=== PATIENT | male | born 1945 | race Caucasian/White ===

== ENCOUNTER 2018-11-22 12:38 | Inpatient (IN) | payer MEDICARE, BC ==
[2018-11-22] MEDS ORDERED: ACETAMINOPHEN 650 MG SUPP PR (12:48)
[2018-11-22] MEDS: SODIUM CHLORIDE 0.9% 1L BAG IV* (13:02)
[2018-11-22 13:05] LABS: ADD MAN DIFF? NO
[2018-11-22] MEDS ORDERED: ACETAMINOPHEN 500 MG TAB (13:05)
[2018-11-22 13:09] LABS: BASOPHIL # 0.1 10^3/ul (0.0-0.1); BASOPHILS % 0.4 % (0.0-2.0); EOSINOPHILS % 0.2 % (0.0-7.0); HEMATOCRIT 35.8 % (42.0-52.0); HEMOGLOBIN 12.1 g/dl (14.0-18.0); LYMPHOCYTES % 7.8 % (15.0-51.0); MEAN CORPUSCULAR HGB CONC 33.8 g/dl (32.0-37.0); MEAN CORPUSCULAR VOLUME 85.9 fl (82.0-101.0); MEAN PLATELET VOLUME 9.1 fl (7.4-10.4); MONOCYTE # 1.3 10^3/ul (0.3-0.9); MONOCYTES % 9.5 % (0.0-11.0); NEUTROPHIL # 10.6 10^3/ul (1.6-7.5); NEUTROPHILS % 80.1 % (39.0-77.0); PLATELET COUNT 351 10^3/UL (140-415); RED BLOOD COUNT 4.17 10^6/ul (4.70-6.10); RED CELL DISTRIBUTION WIDTH 13.5 % (11.5-14.5)
[2018-11-22 13:09] LABS: WHITE BLOOD COUNT 13.2 10^3/ul (4.8-10.8)
[2018-11-22] MEDS: IBUPROFEN 800 MG TAB PO (13:12)
[2018-11-22] MEDS: ACETAMINOPHEN 500 MG TAB PO (13:12)
[2018-11-22] MEDS: CEFEPIME 2GM/50 ML (PMX) 50 ML IVPB (13:13)
[2018-11-22 13:28] LABS: INR 1.19; PROTIME 15.2 Sec (11.9-14.9); PT RATIO 1.2
[2018-11-22 13:29] LABS: PARTIAL THROMBOPLASTIN TIME 35.9 Sec (23.0-35.0)
[2018-11-22 13:34] LABS: ALANINE AMINOTRANSFERASE 38 IU/L (13-69); ALBUMIN 3.7 g/dl (3.3-4.9); ALKALINE PHOSPHATASE 111 IU/L (42-121); AMYLASE 51 U/L (11-123); ANION GAP 10 (5-13); ASPARTATE AMINO TRANSFERASE 45 IU/L (15-46); BILIRUBIN,INDIRECT 0.6 mg/dl (0-1.1); BILIRUBIN,TOTAL 0.6 mg/dl (0.2-1.3); BLOOD UREA NITROGEN 15 mg/dl (7-20); CALCIUM 8.2 mg/dl (8.4-10.2); CARBON DIOXIDE 26 mmol/L (21-31); CHLORIDE 99 mmol/L (97-110); CREATININE 0.77 mg/dl (0.61-1.24); GLUCOSE 132 mg/dl (70-220); LIPASE 25 U/L (23-300); SODIUM 135 mmol/L (135-144); TOTAL PROTEIN 7.4 g/dl (6.1-8.1)
[2018-11-22 13:45] LABS: TROPONIN-I < 0.012 ng/ml (0.000-0.120)
[2018-11-22] MEDS: VANCOMYCIN 1 GM (PMX) 250 ML IVPB (13:48)
[2018-11-22] MEDS: IPRATROPIUM (NEB) 0.5 MG/2.5 ML AMP INH (13:55)
[2018-11-22] MEDS: LEVALBUTEROL (NEB) 1.25 MG/0.5 ML AMP INH (13:55)
[2018-11-22 14:14] LABS: AADO2 Arterial 117.2 mmHg (7.0-24.0); Arterial Base Excess -1.2 mmol/L (-3.0-3); Arterial Blood Gas Oxygen Sat 93.2 mmHG (95.0-100.0); Arterial COHb 0.4 % (0.0-3.0); Arterial Fraction of Oxyhgb 92.5 % (93.0-99.0); Arterial HCO3 21.1 mmol/L (22.0-26.0); Arterial MetHb 0.3 % (0.0-1.5); Arterial pCO2 28.2 mmhg (35-45); MODE NASAL CANNULA; Site Right Radial
[2018-11-22] MEDS ORDERED: ONDANSETRON 4 MG INJ IV (14:30)
[2018-11-22] MEDS: AZITHROMYCIN 500 MG TAB PO (15:57)
[2018-11-22 16:12] LABS: LACTIC ACID 1.1 mmol/L (0.5-2.0)
[2018-11-22 16:21] LABS: ADD UMIC YES; UR ASCORBIC ACID NEGATIVE (NEGATIVE); UR BACTERIA FEW /HPF (NONE SEEN); UR BILIRUBIN (Dip) NEGATIVE (NEGATIVE); UR BLOOD (Dip) 1+ mg/dL (NEGATIVE); UR CLARITY SLIGHTLY CLOUDY (CLEAR); UR COLOR YELLOW (YELLOW); UR GLUCOSE (Dip) NEGATIVE (NEGATIVE); UR KETONES (Dip) 1+ mg/dL (NEGATIVE); UR LEUKOCYTE ESTERASE (Dip) NEGATIVE Leu/ul (NEGATIVE); UR MUCUS FEW /HPF (NONE SEEN); UR NITRITE (Dip) NEGATIVE (NEGATIVE); UR RBC 3 /HPF (0-5); UR SPECIFIC GRAVITY (Dip) 1.027 (1.003-1.030); UR TOTAL PROTEIN (Dip) 2+ mg/dl (NEGATIVE); UR UROBILINOGEN (Dip) NEGATIVE (NEGATIVE); UR WBC 3 /HPF (0-5)
[2018-11-22] MEDS: ALBUTEROL/IPRATROPIUM (NEB) 3 ML AMP HHN (19:38)
[2018-11-22] MEDS: BRIMONIDINE 0.2%-TIMOLOL 0.5% 5ML OPH LEFT EYE (21:03)
[2018-11-22] MEDS: CEFTRIAXONE 1 GM/50 ML (PMX) 50 ML IVPB (21:03)
[2018-11-22] MEDS: ATORVASTATIN 10 MG TAB PO (21:03)
[2018-11-22] MEDS: ACETAMINOPHEN 325 MG TAB PO (21:04)
[2018-11-22] MEDS: ALFUZOSIN (SR) 10 MG TAB PO (22:25)
[2018-11-23] MEDS: ALBUTEROL/IPRATROPIUM (NEB) 3 ML AMP HHN ×6 (01:15→20:07)
[2018-11-23] MEDS: ALBUTEROL 0.083% (NEB) 2.5 MG/3 ML AMP HHN ×2 (03:31→23:11)
[2018-11-23] MEDS: ACETAMINOPHEN 325 MG TAB PO ×2 (06:12→11:41)
[2018-11-23 07:34] LABS: PROCALCITONIN 0.16 ng/mL (0.00-0.10)
[2018-11-23] MEDS: FINASTERIDE 5 MG TAB PO ×2 (08:43→11:41)
[2018-11-23] MEDS: BRIMONIDINE 0.2%-TIMOLOL 0.5% 5ML OPH LEFT EYE ×2 (08:43→21:00)
[2018-11-23] MEDS: METOPROLOL (XL) 100 MG TAB PO (08:44)
[2018-11-23] MEDS: AZITHROMYCIN 500 MG TAB PO (10:50)
[2018-11-23] MEDS: ALFUZOSIN (SR) 10 MG TAB PO (20:49)
[2018-11-23] MEDS: DOCUSATE SODIUM 100 MG CAP PO (20:49)
[2018-11-23] MEDS: ATORVASTATIN 10 MG TAB PO (20:49)
[2018-11-23] MEDS: CEFTRIAXONE 1 GM/50 ML (PMX) 50 ML IVPB (20:49)
[2018-11-23] MEDS: ACETAMINOPHEN 500 MG TAB PO (20:53)
[2018-11-24] MEDS: ALBUTEROL/IPRATROPIUM (NEB) 3 ML AMP HHN ×6 (00:53→20:36)
[2018-11-24] MEDS: ALBUTEROL 0.083% (NEB) 2.5 MG/3 ML AMP HHN ×3 (03:20→15:28)
[2018-11-24] MEDS: ACETAMINOPHEN 500 MG TAB PO ×2 (04:01→08:47)
[2018-11-24 05:40] LABS: ADD MAN DIFF? NO
[2018-11-24 05:46] LABS: BASOPHILS % 0.4 % (0.0-2.0); EOSINOPHILS # 0.1 10^3/ul (0.0-0.5); EOSINOPHILS % 0.9 % (0.0-7.0); HEMOGLOBIN 10.2 g/dl (14.0-18.0); LYMPHOCYTES # 1.3 10^3/ul (0.8-2.9); LYMPHOCYTES % 11.9 % (15.0-51.0); MEAN CORPUSCULAR HEMOGLOBIN 29.7 pg (29.0-33.0); MEAN CORPUSCULAR VOLUME 87.5 fl (82.0-101.0); MONOCYTE # 1.3 10^3/ul (0.3-0.9); MONOCYTES % 11.9 % (0.0-11.0); NEUTROPHIL # 7.6 10^3/ul (1.6-7.5); NEUTROPHILS % 71.7 % (39.0-77.0); PLATELET COUNT 284 10^3/UL (140-415); RED BLOOD COUNT 3.43 10^6/ul (4.70-6.10); RED CELL DISTRIBUTION WIDTH 13.9 % (11.5-14.5)
[2018-11-24 05:46] LABS: WHITE BLOOD COUNT 10.6 10^3/ul (4.8-10.8)
[2018-11-24 06:45] LABS: ANION GAP 8 (5-13); BLOOD UREA NITROGEN 10 mg/dl (7-20); CALCIUM 7.7 mg/dl (8.4-10.2); CARBON DIOXIDE 27 mmol/L (21-31); CHLORIDE 103 mmol/L (97-110); CREATININE 0.65 mg/dl (0.61-1.24); GLUCOSE 115 mg/dl (70-220); POTASSIUM 3.8 mmol/L (3.5-5.1); SODIUM 138 mmol/L (135-144)
[2018-11-24] MEDS: AZITHROMYCIN 500 MG TAB PO (08:40)
[2018-11-24] MEDS: FINASTERIDE 5 MG TAB PO (08:41)
[2018-11-24] MEDS: METOPROLOL (XL) 100 MG TAB PO (08:42)
[2018-11-24] MEDS: BRIMONIDINE 0.2%-TIMOLOL 0.5% 5ML OPH LEFT EYE ×2 (08:43→21:01)
[2018-11-24] MEDS: GUAIFENESIN/DM 5ML CUP PO (17:06)
[2018-11-24] MEDS: ALFUZOSIN (SR) 10 MG TAB PO (21:01)
[2018-11-24] MEDS: ATORVASTATIN 10 MG TAB PO (21:01)
[2018-11-24] MEDS: CEFTRIAXONE 1 GM/50 ML (PMX) 50 ML IVPB (21:01)
[2018-11-25] MEDS: ALBUTEROL/IPRATROPIUM (NEB) 3 ML AMP HHN ×6 (00:36→20:47)
[2018-11-25] MEDS: ACETAMINOPHEN 500 MG TAB PO (01:01)
[2018-11-25] MEDS: GUAIFENESIN/DM 5ML CUP PO ×3 (01:01→22:09)
[2018-11-25] MEDS: FINASTERIDE 5 MG TAB PO (08:31)
[2018-11-25] MEDS: AZITHROMYCIN 500 MG TAB PO (08:31)
[2018-11-25] MEDS: BRIMONIDINE 0.2%-TIMOLOL 0.5% 5ML OPH LEFT EYE ×2 (08:32→17:08)
[2018-11-25] MEDS: METOPROLOL (XL) 100 MG TAB PO (08:32)
[2018-11-25] MEDS: CEFTRIAXONE 1 GM/50 ML (PMX) 50 ML IVPB (20:41)
[2018-11-25] MEDS: ATORVASTATIN 10 MG TAB PO (20:41)
[2018-11-25] MEDS: ALFUZOSIN (SR) 10 MG TAB PO (20:41)
[2018-11-25] MEDS: AMLODIPINE 5 MG TAB PO (21:19)
[2018-11-26] MEDS: ALBUTEROL/IPRATROPIUM (NEB) 3 ML AMP HHN ×6 (00:52→20:30)
[2018-11-26] MEDS: ACETAMINOPHEN 500 MG TAB PO (03:01)
[2018-11-26 05:28] LABS: WHITE BLOOD COUNT 10.2 10^3/ul (4.8-10.8)
[2018-11-26 05:28] LABS: HEMOGLOBIN 11.4 g/dl (14.0-18.0); MEAN CORPUSCULAR HEMOGLOBIN 29.6 pg (29.0-33.0); MEAN CORPUSCULAR HGB CONC 33.5 g/dl (32.0-37.0); MEAN CORPUSCULAR VOLUME 88.3 fl (82.0-101.0); MEAN PLATELET VOLUME 8.5 fl (7.4-10.4); PLATELET COUNT 349 10^3/UL (140-415); POSITIVE DIFF @See below; RED BLOOD COUNT 3.85 10^6/ul (4.70-6.10); RED CELL DISTRIBUTION WIDTH 13.9 % (11.5-14.5)
[2018-11-26 05:32] LABS: ADD MAN DIFF? YES
[2018-11-26] MEDS: IBUPROFEN 400 MG TAB PO (05:47)
[2018-11-26 05:53] LABS: ANION GAP 6 (5-13); BLOOD UREA NITROGEN 11 mg/dl (7-20); CALCIUM 7.9 mg/dl (8.4-10.2); CARBON DIOXIDE 28 mmol/L (21-31); CHLORIDE 106 mmol/L (97-110); CREATININE 0.66 mg/dl (0.61-1.24); GLUCOSE 102 mg/dl (70-220); POTASSIUM 4.4 mmol/L (3.5-5.1); SODIUM 140 mmol/L (135-144)
[2018-11-26] MEDS: BRIMONIDINE 0.2%-TIMOLOL 0.5% 5ML OPH LEFT EYE ×2 (06:13→16:20)
[2018-11-26 06:58] LABS: BAND NEUTROPHILS #M 0.6 10^3/ul (0.0-0.6); BAND NEUTROPHILS % (M) 6 % (0-4); EOSINOPHILS % (M) 1 % (0-7); LYMPHOCYTES #M 1.4 10^3/ul (0.8-2.9); LYMPHOCYTES % (M) 14 % (15-51); METAMYELOCYTES #M 0.2 10^3/ul (0.0-0.0); METAMYELOCYTES %M 2 % (0-0); MONOCYTE #M 0.7 10^3/ul (0.3-0.9); MONOCYTES % (M) 7 % (0-11); PLATELET ESTIMATE NORMAL; POLYCHROMASIA 3+ (0-0); REACTIVE LYMPHOCYTES #M 0.3 10^3/ul (0.0-0.0); REACTIVE LYMPHOCYTES% (M) 3 % (0-0); SEG NEUT #M 6.9 10^3/ul (1.6-7.5); SEGMENTED NEUTROPHILS (M) % 67 % (39-77); SMUDGE%M 6 % (0-0)
[2018-11-26] MEDS: METOPROLOL (XL) 100 MG TAB PO (08:57)
[2018-11-26] MEDS: AZITHROMYCIN 500 MG TAB PO (08:57)
[2018-11-26] MEDS: FINASTERIDE 5 MG TAB PO (08:57)
[2018-11-26] MEDS: AMLODIPINE 5 MG TAB PO (08:57)
[2018-11-26] MEDS ORDERED: AMLODIPINE 2.5 MG TAB PO (18:30)
[2018-11-26] MEDS: ALFUZOSIN (SR) 10 MG TAB PO (20:20)
[2018-11-26] MEDS: CEFTRIAXONE 1 GM/50 ML (PMX) 50 ML IVPB (20:20)
[2018-11-26] MEDS: AMLODIPINE 2.5 MG TAB PO (20:21)
[2018-11-26] MEDS: ATORVASTATIN 10 MG TAB PO (20:22)
[2018-11-27] MEDS: ALBUTEROL/IPRATROPIUM (NEB) 3 ML AMP HHN ×5 (01:21→16:32)
[2018-11-27 05:56] LABS: WHITE BLOOD COUNT 8.8 10^3/ul (4.8-10.8)
[2018-11-27 05:56] LABS: HEMATOCRIT 33.3 % (42.0-52.0); HEMOGLOBIN 10.8 g/dl (14.0-18.0); MEAN CORPUSCULAR HEMOGLOBIN 29.1 pg (29.0-33.0); MEAN CORPUSCULAR HGB CONC 32.4 g/dl (32.0-37.0); MEAN CORPUSCULAR VOLUME 89.8 fl (82.0-101.0); MEAN PLATELET VOLUME 8.6 fl (7.4-10.4); PLATELET COUNT 350 10^3/UL (140-415); POSITIVE DIFF @See below; RED BLOOD COUNT 3.71 10^6/ul (4.70-6.10); RED CELL DISTRIBUTION WIDTH 13.6 % (11.5-14.5)
[2018-11-27] MEDS: BRIMONIDINE 0.2%-TIMOLOL 0.5% 5ML OPH LEFT EYE ×2 (06:09→16:36)
[2018-11-27 06:20] LABS: ANION GAP 8 (5-13); BLOOD UREA NITROGEN 14 mg/dl (7-20); CALCIUM 8.1 mg/dl (8.4-10.2); CARBON DIOXIDE 26 mmol/L (21-31); CHLORIDE 106 mmol/L (97-110); CREATININE 0.71 mg/dl (0.61-1.24); GLUCOSE 97 mg/dl (70-220); POTASSIUM 4.7 mmol/L (3.5-5.1); SODIUM 140 mmol/L (135-144)
[2018-11-27 06:28] LABS: ADD MAN DIFF? YES
[2018-11-27 07:04] LABS: PROCALCITONIN 0.06 ng/mL (0.00-0.10)
[2018-11-27 09:05] LABS: EOSINOPHILS # 0.1 10^3/ul (0.0-0.5); EOSINOPHILS % (M) 1 % (0.0-7.0); LYMPHOCYTES # 2.6 10^3/ul (0.8-2.9); LYMPHOCYTES #M 2.6 10^3/ul (0.8-2.9); LYMPHOCYTES % (M) 30 % (15-51); MONOCYTE # 0.5 10^3/ul (0.3-0.9); MONOCYTE #M 0.5 10^3/ul (0.3-0.9); MONOCYTES % (M) 6 % (0-11); SEGMENTED NEUTROPHILS (M) % 63 % (39-77)
[2018-11-27] MEDS: AZITHROMYCIN 500 MG TAB PO (09:13)
[2018-11-27] MEDS: METOPROLOL (XL) 100 MG TAB PO (09:15)
[2018-11-27] MEDS: AMLODIPINE 2.5 MG TAB PO (09:15)
[2018-11-27] MEDS: FINASTERIDE 5 MG TAB PO (09:15)
[2018-11-27 13:22] LABS: MYCOPLASMA PNEUMONIAE AB (IGG) < or = 0.90
[2018-11-27] MEDS: CEFTRIAXONE 1 GM/50 ML (PMX) 50 ML IVPB (18:03)
== END 2018-11-27 19:00 | disposition home or self-care (01) | DRG 871 ==
LOC: E/R 12:38 → 6WM 14:56
DX: A41.9 Sepsis, unspecified organism (principal); J18.9 Pneumonia, unspecified organism; J96.01 Acute respiratory failure with hypoxia; I10 Essential (primary) hypertension; H40.9 Unspecified glaucoma; E78.5 Hyperlipidemia, unspecified; N40.0 Benign prostatic hyperplasia without lower urinary tract symptoms; R65.20 Severe sepsis without septic shock; Z79.82 Long term (current) use of aspirin
CPT/HCPCS: 36415; 36600; 71045; 80048; 80053; 81001; 82150; 82803; 83605; 83690; 84145; 84484; 85025; 85610; 85730; 86738; 87040-91; 87070; 87086; 87275; 87276; 87279; 87280; 87400; 87449; 93005; 94640; 94660; 94664; 96374; 96375; 99285-25